=== PATIENT | female | born 1945 | race Caucasian/White ===

== ENCOUNTER → 2016-12-30 15:22 | Outpatient (CLI) | payer MEDICARE ==
[2016-08-11 22:40] VITALS: BMI 22.5
[~2016-12-30 15:22] MED LIST: CARAFATE1 G PO; CELEXA10 MG PO; HYDROCHLOROTH12.5 M1 PO; OMEPRAZOLE40 MG PO; PROAIR HFA8.5 GM INH; STERAPRED DS 1210 MG PO
== END | disposition home or self-care (01) ==
LOC: D.MRI 15:22
DX: R51 Headache (principal)

== ENCOUNTER → 2018-01-27 08:48 | Outpatient (CLI) | payer MEDICARE ==
[2016-08-11 22:40] VITALS: BMI 22.5
== END | disposition home or self-care (01) ==
LOC: D.RT 08:48
DX: J44.9 Chronic obstructive pulmonary disease, unspecified (principal)

== ENCOUNTER → 2018-09-14 09:17 | Outpatient (CLI) | payer MEDICARE ==
[2016-08-11 22:40] VITALS: BMI 22.5
== END | disposition home or self-care (01) ==
LOC: D.NM 09:17
DX: K21.9 Gastro-esophageal reflux disease without esophagitis (principal); K22.4 Dyskinesia of esophagus

== ENCOUNTER → 2019-04-27 12:20 | Outpatient (CLI) | payer MEDICARE ==
[2016-08-11 22:40] VITALS: BMI 22.5
== END | disposition home or self-care (01) ==
LOC: D.RT 12:20
PROVIDERS: ATTEND Internal Medicine Pulmonary Disease
DX: J45.991 Cough variant asthma (principal)

== ENCOUNTER → 2021-03-14 10:16 | Outpatient (CLI) | payer MEDICARE ==
[2020-10-16 18:31] VITALS: BMI 22.7
[~2021-03-14 10:16] MED LIST changes: +ACETAMINOPHEN325 MG PO; +AZITHROMYCIN500 MG PO; +COZAAR25 MG PO; +DECADRON4 MG PO; +DELSYM30 MG/5 M1 PO; +DULERA 200 MCG8.8 GM INH; +FLORAJEN3 CAPS460 MG PO; +FLUTICASONE PRO16 GM NASAL; +MELATONIN 3 MG1 TAB PO; +OMNICEF300 MG PO; +SINGULAIR10 MG PO; +TESSALON PERLE100 MG PO; +VITAMIN C PO; +VITAMIN D325 MC1 PO; +ZINC-220220 MG PO
[2021-03-14 22:07] LABS: BASOPHILS 1.2 % (0-2); EOSINOPHILS 1.7 % (0-7); HEMATOCRIT 42.5 % (36.0-48.0); HEMOGLOBIN 13.8 g/dL (12-16); LYMPHOCYTES 32.1 % (15-50); MCH 27.6 pg (26.0-34.0); MCHC 32.6 g/dL (31.0-37.0); MCV 84.8 fL (80.0-100.0); MEAN PLATELET VOLUME 8.8 fL (7.4-10.4); MONOCYTES 8.2 % (2-11); NEUTROPHILS 56.8 % (40-80); PLATELET COUNT 223 10x3/uL (130-400); RBC 5.01 10x6/uL (4.00-5.40); RDW 13.8 % (11.5-14.5); WBC 3.9 10x3/uL (4.8-10.8)
[2021-03-14 23:35] LABS: ERYTHROCYTE SEDIMENTATION RATE 5 mm/hr (0-30)
== END | disposition home or self-care (01) ==
LOC: D.LABREF 10:16
PROVIDERS: ATTEND Orthopaedic Surgery
DX: M25.562 Pain in left knee (principal)

== ENCOUNTER → 2021-03-20 08:14 | Outpatient (CLI) | payer MEDICARE ==
[2020-10-16 18:31] VITALS: BMI 22.7
== END | disposition home or self-care (01) ==
LOC: D.NM 08:00
PROVIDERS: ATTEND Orthopaedic Surgery
DX: Z96.652 Presence of left artificial knee joint (principal)

== ENCOUNTER → 2021-04-01 17:22 | Outpatient (CLI) | payer MEDICARE ==
[2020-10-16 18:31] VITALS: BMI 22.7
== END | disposition home or self-care (01) ==
LOC: D.LABREF 17:22
PROVIDERS: ATTEND Orthopaedic Surgery
DX: M17.12 Unilateral primary osteoarthritis, left knee (principal)